=== PATIENT | female | born 2000 | race Caucasian/White ===

== ENCOUNTER 2025-04-10 22:18 | Emergency (ER) | payer OTHER, SELFPAY ==
--- NOTE | 2025-04-10 22:25 | ED_ITS ---
HPI - Abdominal Pain General Chief Complaint: Abdominal Pain Stated Complaint: LRQ x5 days, nausea Time Seen by Provider: 04/10/25 22:22 History of Present Illness HPI narrative: Patient is a 25-year-old female without any significant past medical history comes into the ED from home for evaluation of right lower quadrant/pelvic pain ongoing persistent for the past few days, states that she does have some nausea associated with the it. Describes it as achy in nature, pressing on it does make it worse nothing making it better. Has any other symptoms at this time. No trauma no falls no history of abdominal surgery. Related Data Allergies Allergy/AdvReac Type Severity Reaction Status Date / Time No Known Drug Allergies Allergy Verified 04/10/25 22:30 Review of Systems Review of Systems Narrative: General: Denies fever, chills, weight loss HEENT: Denies headache, eye drainage, eye irritation, head trauma, sore throat, voice change Cardiovascular: Denies any chest pain, palpitations, tachycardia Respiratory: Denies any shortness of breath, cough, wheeze, stridor GI/: Positive right lower quadrant abdominal pain/pelvic, nausea, denies vomiting, diarrhea, bright red blood per rectum, melanotic stools, urinary frequency, urinary retention, dysuria, hematuria MSK: Denies any joint pain, muscle pains, swelling Skin: Denies any rashes, lesions, discoloration Neuro: Denies any headache, lightheadedness, dizziness, fainting, weakness Psych: Denies SI/HI Patient History Social History Smoking Status: Current every day smoker Exam Narrative Exam Narrative: General: Cooperative, well-developed, not in acute distress HEENT: Normocephalic, atraumatic, PERRLA, normal sclera, eyelids normal Neck: Active full range of motion, atraumatic Chest: Normal to inspection, negative crepitus, no overlying erythema ecchymosis Respiratory: Normal respiratory effort, not in acute respiratory distress, clear to auscultation bilaterally negative cough, wheeze, tachypnea, rhonchi, rales Cardiology: Regular rate rhythm negative gallop, murmur, rubs GI/: Mild tenderness to palpation of the right lower quadrant/pelvic region, soft, non rigid, normal to inspection, exam deferred MSK: Full active range of motion in all 4 extremities, atraumatic, no tenderness to palpation of any bony prominences Skin: No rashes or lesions noted Neuro: Alert awake oriented x3, moves all 4 extremities spontaneously, cranial nerves intact, able to answer all questions appropriately follows commands appropriately Psych: Cooperative, negative suicidal or homicidal ideations Initial Vital Signs Initial Vital Signs: Vital Signs Temperature 98.8 F 04/10/25 22:30 Pulse Rate 93 H 04/10/25 22:30 Respiratory Rate 17 04/10/25 22:30 Blood Pressure 134/93 H 04/10/25 22:30 Pulse Oximetry 98 04/10/25 22:30 Oxygen Delivery Method Room Air 04/10/25 22:30 Course Orders Ordered: ED Orders 04/10/25 22:28 CT abdomen pelvis w con Stat US pelvic complete Stat 04/10/25 22:35 Complete Blood Count AUTO DIFF Stat Comprehensive Metabolic Panel Stat Lipase Stat MAG [Magnesium] Stat Test [HCG Quantitative /Beta subunit] Stat Discontinued Medications Sodium Chloride (Normal Saline 0.9%) 1,000 mls @ 1,000 mls/hr IV BOLUS ONE Stop: 04/10/25 23:22 Last Infusion: 04/10/25 23:20 Dose: Infused Documented By: Admin: 04/10/25 22:32 Dose: 1,000 mls/hr Documented By: ROHITH Vital Signs Vital signs: Vital Signs - 8 hr 04/10/25 22:30 04/10/25 22:40 04/10/25 23:00 Temperature 98.8 F Pulse Rate 93 H 80 Respiratory Rate 17 Blood Pressure 134/93 H 123/69 Pulse Oximetry 98 98 Oxygen Delivery Method Room Air 04/10/25 23:00 Temperature Pulse Rate 73 Respiratory Rate Blood Pressure Pulse Oximetry 99 Oxygen Delivery Method MDM - Abdominal Pain Differential Diagnosis Differential diagnosis: Likely abdominal pain, acute appendicitis, constipation, diverticulitis and other (Electrolyte abnormality, ovarian cyst,) Lab Data 04/10/25 22:35 04/10/25 22:35 Labs: Lab Results 04/10/25 Range/Units 22:35 WBC 8.8 (4.5-11.0) X10^3/uL RBC 4.12 (4.0-5.2) X10^6/uL Hgb 13.5 (12.0-16.0) g/dL Hct 39.3 (36-46) % MCV 95.3 (80-100) fL MCH 32.8 (26-34) PG MCHC 34.4 (30-36) % RDW 12.2 (11.6-14.8) % Plt Count 203 (150-400) X10^3/uL Neut % (Auto) 69.2 (50-75) % Lymph % (Auto) 19.7 L (25-40) % [place] % (Auto) 9.4 (3-14) % Eos % (Auto) 0.9 L (2-4) % Baso % (Auto) 0.8 (0-2) % Neut # (Auto) 6100 (1853-2206) /uL Lymph # (Auto) 1700 (9995-1756) /uL [place] # (Auto) 800 (0-900) /uL Eos # (Auto) 100 (0-450) /uL Baso # (Auto) 100 (0-100) /uL Sodium 139 (137-145) mmol/L Potassium 4.1 (3.4-5.1) mmol/L Chloride 106 (98-107) mmol/L Carbon Dioxide 28 (22-32) mmol/L BUN 14 (7-17) mg/dL Creatinine 0.85 (0.52-1.04) mg/dL Estimated GFR > 60 (>60) mL/min BUN/Creatinine Ratio 16.5 (6-22) Glucose 109 H (70-99) mg/dL Calcium 9.4 (8.4-10.2) mg/dL Magnesium 2.0 (1.6-2.3) mg/dL Total Bilirubin 0.4 (0.2-1.3) mg/dL AST 24 (14-36) IU/L ALT 14 (<35) IU/L Alkaline Phosphatase 41 (38-126) U/L Total Protein 7.9 (6.3-8.2) g/dL Albumin 4.7 (3.5-5.0) g/dL Globulin 3.2 (1.7-4.1) g/dL Albumin/Globulin Ratio 1.5 (1.0-2.8) Lipase 89 (23-300) U/L HCG, Quant < 2.39 mIU/mL Point of care testing: Point of Care Testing Test Results Negative Urine Dip Bedside Urine Glucose Negative Bedside Urine Bilirubin - Negative Bedside Urine Ketone - Negative Urine Specific [place] 1.015 Bedside Urine Occult Blood - Negative Bedside Urine pH 6.0 Bedside Urine Protein - Negative Bedside Urine Urobilinogen +/- 1mg Bedside Urine Nitrite - Negative Bedside Urine Leukocytes - Negative Esterase Imaging Data CT scan - abdomen/pelvis: Radiologist's Impression: [address] [address] [address] Scan Report Signed Patient: Rigo Castillo MR#: [id number] : 2000 Acct:[id number] Age/Sex: 25 / F Date of Service: 04/10/25 Loc: ED Accession Number: [id number] Procedure: CT abdomen pelvis w con Ordering Provider: Johnnie Rosales D.O. PROCEDURE: CT ABDOMEN PELVIS W CON INDICATIONS: RLQ abd pain TECHNIQUE: After the administration of intravenous contrast, axial sections acquired from the lung bases to the pubic symphysis. Coronal and sagittal reformats were performed. For radiation dose reduction, the following was used: automated exposure control, adjustment of mA and/or kV according to patient size. COMPARISON: None. FINDINGS: Image quality: Diagnostic. Lower Chest: No significant findings. ABDOMEN: Liver: No solid mass. Gallbladder: No radiopaque gallstones or wall thickening. Biliary ducts: No biliary dilation. Pancreas: No ductal dilation. Spleen: Size is within normal limits. Adrenal Glands: No adrenal nodules. Kidneys and Ureters: No hydronephrosis. No solid mass. No complex renal cystic lesion which requires follow up. Stomach and Bowel: Normal colonic caliber, without significant wall thickening. Normal appendix. Peritoneum: No abnormal intraperitoneal fluid. No free air. Ventral Wall: Small umbilical hernia containing fat. Abdominal Nodes: No retroperitoneal or mesenteric adenopathy by size criteria. Vessels: Aorta and inferior vena cava are normal in size. PELVIS: Pelvic Organs: Symmetric ovaries. Bladder: No bladder wall thickening, accounting for underdistention. Pelvic Nodes: No enlarged lymph nodes. Miscellaneous: No inguinal hernias are seen. Bones: No aggressive osseous abnormality. IMPRESSION: No findings to explain the patient's right lower quadrant pain. No nephrolithiasis. Normal gallbladder. Normal appendix. US - MANAGER AGRICULTURAL: Radiologist's Impression: [address] [address] Ultrasound Report Signed Patient: Rigo Castillo MR#: [id number] : 2000 Acct:[id number] Age/Sex: 25 / F Date of Service: 04/10/25 Loc: ED Accession Number: [id number] Procedure: US pelvic complete Ordering Provider: Johnnie Rosales D.O. PROCEDURE: US PELVIC COMPLETE INDICATIONS: right sided pelvic pain TECHNIQUE: Real-time scanning was performed of the pelvic organs, with image documentation. Additional endovaginal scanning was necessary due to incomplete visualization of the adnexal and endometrial structures by transabdominal scanning. COMPARISON: None. FINDINGS: Uterus: Uterus is anteverted and normal in size at 7.8 x 3.4 x 4.5 cm. The myometrium is homogeneous. The endometrium measures 10 mm combined thickness. Ovaries: The right ovary measures 2.6 x 2.8 x 2.0 cm, with a calculated ovarian volume of 7.6 cc. The left ovary measures 2.3 x 1.4 x 2.0 cm, with a calculated ovarian volume of 3.3 cc. The ovaries have a normal sonographic appearance. Less than 12 follicles can be seen in each ovary. No adnexal masses are seen. Other: No pathologic free abdominal or pelvic fluid. IMPRESSION: Normal pelvic ultrasound. No evidence of ovarian torsion or cyst. We strive to produce accurate, complete, and clear reports of imaging services. To assist us in improving patient care, this report was composed using standard report templates and voice recognition software. Therefore, it may contain abnormal punctuation, insertions and/or omissions. Occasional wrong-word or sound-alike substitutions may occur. Though we review the report and make efforts to correct it, we do recommend that the report be read carefully in proper context to recognize any text inaccuracies. [facility] Narrative Medical decision making narrative: Patient is a 25-year-old female without any significant past medical history comes into the ED from home for evaluation of right lower quadrant/pelvic pain ongoing persistent for the past few days. Does endorse nausea no vomiting. States that it is achy/dull pressure makes it worse nothing making it better. Patient not complaining of any other symptoms no history of surgery to the abdomen. Patient had lab work imaging urinalysis performed here in the emergency department. Urinalysis not consistent acute urinary tract infection, lab work unremarkable no leukocytosis Chem panel unremarkable. Ultrasound and CT scan without any acute findings, symptoms might be secondary to Mitt[place]chmerz, patient states that she is currently ambulating, [place] I did instruct patient to follow up with OBGYN as well as primary care in outpatient setting, she verbalized understanding of this and agrees to being discharged home with outpatient follow up. Discharge Plan Departure Patient Disposition: Home Clinical Impression: Abdominal pain Activity Restrictions/Additional Instructions: Please follow up with your primary care doctor and your OBGYN outpatient setting You may take Motrin Tylenol to help with the symptoms/pain Please read the discharge instructions sheet carefully and bring all papers to all doctor follow-up visits, as it may contain information that your doctor may want to see. Disease processes change and evolve, if your symptoms worsen or if you develop any new symptoms that are concerning to you please return for evaluation. Your evaluation today does not show any evidence of any life- threatening/serious illnesses requiring admission to the hospital or surgery. Please follow-up with your doctor for re-evaluation in approximately 1 day. Seek immediate medical attention for any worrisome symptoms. *If you do not have a primary care provider please contact the [facility] Resource line at [phone]. They will ask some questions about your medical history and help get you set up with a doctor in the community. Referrals: Provider,Jasmin GARRETT [Primary Care Provider, Family Practice] Stand Alone Forms: Patient Portal/API
--- NOTE | 2025-04-10 22:28 | DI.CT.S_ITS ---
PROCEDURE: CT ABDOMEN PELVIS W CON INDICATIONS: RLQ abd pain TECHNIQUE: After the administration of intravenous contrast, axial sections acquired from the lung bases to the pubic symphysis. Coronal and sagittal reformats were performed. For radiation dose reduction, the following was used: automated exposure control, adjustment of mA and/or kV according to patient size. COMPARISON: None. FINDINGS: Image quality: Diagnostic. Lower Chest: No significant findings. ABDOMEN: Liver: No solid mass. Gallbladder: No radiopaque gallstones or wall thickening. Biliary ducts: No biliary dilation. Pancreas: No ductal dilation. Spleen: Size is within normal limits. Adrenal Glands: No adrenal nodules. Kidneys and Ureters: No hydronephrosis. No solid mass. No complex renal cystic lesion which requires follow up. Stomach and Bowel: Normal colonic caliber, without significant wall thickening. Normal appendix. Peritoneum: No abnormal intraperitoneal fluid. No free air. Ventral Wall: Small umbilical hernia containing fat. Abdominal Nodes: No retroperitoneal or mesenteric adenopathy by size criteria. Vessels: Aorta and inferior vena cava are normal in size. PELVIS: Pelvic Organs: Symmetric ovaries. Bladder: No bladder wall thickening, accounting for underdistention. Pelvic Nodes: No enlarged lymph nodes. Miscellaneous: No inguinal hernias are seen. Bones: No aggressive osseous abnormality. IMPRESSION: No findings to explain the patient's right lower quadrant pain. No nephrolithiasis. Normal gallbladder. Normal appendix. Dictated by: Fernando Gonzalez M.D. on 04/10/2025 at 23:48 Approved by: Fernando Gonzalez M.D. on 04/10/2025 at 23:53
--- NOTE | 2025-04-10 22:28 | DI.US.S_ITS ---
PROCEDURE: US PELVIC COMPLETE INDICATIONS: right sided pelvic pain TECHNIQUE: Real-time scanning was performed of the pelvic organs, with image documentation. Additional endovaginal scanning was necessary due to incomplete visualization of the adnexal and endometrial structures by transabdominal scanning. COMPARISON: None. FINDINGS: Uterus: Uterus is anteverted and normal in size at 7.8 x 3.4 x 4.5 cm. The myometrium is homogeneous. The endometrium measures 10 mm combined thickness. Ovaries: The right ovary measures 2.6 x 2.8 x 2.0 cm, with a calculated ovarian volume of 7.6 cc. The left ovary measures 2.3 x 1.4 x 2.0 cm, with a calculated ovarian volume of 3.3 cc. The ovaries have a normal sonographic appearance. Less than 12 follicles can be seen in each ovary. No adnexal masses are seen. Other: No pathologic free abdominal or pelvic fluid. IMPRESSION: Normal pelvic ultrasound. No evidence of ovarian torsion or cyst. We strive to produce accurate, complete, and clear reports of imaging services. To assist us in improving patient care, this report was composed using standard report templates and voice recognition software. Therefore, it may contain abnormal punctuation, insertions and/or omissions. Occasional wrong-word or sound-alike substitutions may occur. Though we review the report and make efforts to correct it, we do recommend that the report be read carefully in proper context to recognize any text inaccuracies. Dictated by: Fernando Gonzalez M.D. on 04/10/2025 at 23:23 Approved by: Fernando Gonzalez M.D. on 04/10/2025 at 23:25
[2025-04-10 22:30] VITALS: BP 134/93; PULSE 93; RESP 17; TEMP 37.1; O2SAT 98; BMI 26.2
[2025-04-10] MEDS: SODIUM CHLORIDE 0.9% 1,000 ML 1000 ML IV (22:32)
[2025-04-10 22:40] VITALS: PULSE 80; O2SAT 98
[2025-04-10 22:48] LABS: Add Manual Diff / Slide Review NO; Hematocrit 39.3 % (36-46); Hemoglobin 13.5 g/dL (12.0-16.0); Lymphocytes Absolute Auto 1700 /uL (1100-4500); Mean Corpuscular HGB Conc 34.4 % (30-36); Mean Corpuscular Hemoglobin 32.8 PG (26-34); Mean Corpuscular Volume 95.3 fL (80-100); Platelet Count 203 X10^3/uL (150-400)
[2025-04-10 22:58] LABS: Alanine Aminotransferase 14 IU/L (<35); Albumin 4.7 g/dL (3.5-5.0); Albumin Globulin Ratio 1.5 (1.0-2.8); Alkaline Phosphatase 41 U/L (38-126); Blood Urea Nitrogen 14 mg/dL (7-17); Calcium 9.4 mg/dL (8.4-10.2); Carbon Dioxide 28 mmol/L (22-32); Chloride 106 mmol/L (98-107); Estimated Glomerular Filt Rate > 60 mL/min (>60); Globulin 3.2 g/dL (1.7-4.1); Glucose 109 mg/dL (70-99); HEMOLYSIS < 15 (0-50); Lipase 89 U/L (23-300); Potassium 4.1 mmol/L (3.4-5.1); Sodium 139 mmol/L (137-145); Total Protein 7.9 g/dL (6.3-8.2)
[2025-04-10 22:59] LABS: Magnesium 2.0 mg/dL (1.6-2.3)
[2025-04-10 23:00] VITALS: BP 123/69; PULSE 73; O2SAT 99
[2025-04-10 23:15] LABS: HCG Quantitative /Beta subunit < 2.39 mIU/mL
[2025-04-10 23:28] VITALS: BP 135/65; PULSE 90; O2SAT 99
[2025-04-10 23:30] VITALS: PULSE 86; O2SAT 99
[2025-04-10 23:31] VITALS: BP 124/62; PULSE 92; O2SAT 98
[2025-04-11] VITALS: BP 113/67; PULSE 86; O2SAT 98
== END 2025-04-11 00:26 | disposition home or self-care (01) ==
PROVIDERS: Emergency Provider Student in an Organized Health Care Education/Training Program
DX: R10.31 Right lower quadrant pain (principal); R10.2 Pelvic and perineal pain
CPT/HCPCS: 36415; 74177; 76830; 76856; 80053; 81003; 81025; 83690; 83735; 84702; 85025; 93975; 96360; 99284; Q9967